=== PATIENT | male | born 1940 | race Caucasian/White ===

== ENCOUNTER 2020-12-22 23:09 | Inpatient (IN) ==
[2020-12-23 05:00] LABS: Hemoglobin 8.1 g/dL (12.9-16.9); Red Cell Distribution Width 14.7 % (11.5-14.5)
[2020-12-23 05:02] LABS: Basophils % 0.2 %; Eosinophils # 0.1 K/mcL (0.0-0.6); Eosinophils % 1.5 %; Hematocrit 24.9 % (37.5-50.1); Immature Granulocytes % 7.9 % (0-4); Immature Platelets 5.2 % (1.1-6.1); Lymphocytes # 0.5 K/mcL (0.6-4.6); Lymphocytes % 12.4 %; Mean Corpuscular HGB Conc 32.5 g/dL (31.6-35.5); Mean Corpuscular Hemoglobin 34.8 pg (28.0-33.3); Mean Corpuscular Volume 106.9 fL (83.0-100.0); Mean Platelet Volume 10.4 fL (9.4-12.4); Monocytes # 0.3 K/mcL (0.0-1.3); Monocytes % 6.2 %; Neutrophils # 2.9 K/mcL (1.6-8.9); Red Blood Count 2.33 M/mcL (4.19-5.50); Segmented Neutrophils % 71.8 %
[2020-12-23 05:04] LABS: Platelet Count 73 K/mcL (140-400)
[2020-12-23 05:10] LABS: INR 1.5; Prothrombin Time 16.6 Seconds (9.4-12.1)
[2020-12-23 05:13] LABS: Activated Partial Thrombo Time 32.6 Seconds (26.0-36.0)
[2020-12-23 05:28] LABS: Alanine Aminotransferase 20 Units/L (7-52); Albumin 3.3 g/dL (3.5-5.7); Albumin/Globulin Ratio 1.3 (1.1-2.2); Alkaline Phosphatase 108 Units/L (34-104); Aspartate Amino Transferase 37 Units/L (13-39); BUN/Creatinine Ratio 18 (6-26); Bilirubin,Direct 0.3 mg/dL (0.0-0.2); Bilirubin,Indirect 1.1 mg/dL (0.0-1.0); Bilirubin,Total 1.4 mg/dL (0.3-1.0); Blood Urea Nitrogen 21 mg/dL (8-23); Calcium 9.2 mg/dL (8.6-10.3); Carbon Dioxide 24 mEq/L (23-29); Chloride 106 mEq/L (98-107); Creatine Kinase 30 Units/L (30-223); Ethanol < 10 mg/dL (Less than 10); Globulin 2.5 g/dL (2.4-3.5); Glucose 33 mg/dL (70-105); Osmolality,Calculated 287 (280-300); Platelet Estimate Decreased (Normal); Poikilocytosis 1+ (Not Present); Potassium 3.7 mEq/L (3.5-5.1); Schistocytes 1+ (Not Present); Sodium 139 mEq/L (136-145); Total Protein 5.8 g/dL (6.4-8.9); Troponin I < 0.03 ng/mL (< 0.04); Uric Acid 6.7 mg/dL (2.3-7.6); eGFR For African Americans > 60 (> 60); eGFR For Non-African Americans > 60 (> 60)
[2020-12-23 05:29] LABS: Bilirubin,Urine Negative (Negative); Blood,Urine Negative (Negative); Clarity,Urine Clear (Clear); Color,Urine Light-Yellow (Yellow); Glucose,Urine (UA) Normal (Normal); Ketones,Urine Negative (Negative); Leukocyte Esterase,Urine Negative (Negative); Nitrite,Urine Negative (Negative); Protein,Urine Negative (Neg-Trace); Specific Gravity,Urine 1.011 (1.010-1.025); Urobilinogen,Urine Normal (Normal)
[2020-12-23] MEDS ORDERED: *HR* Dextrose 50 % in Water (Syg) 50 ML SYRINGE ONE (05:29)
[2020-12-23] MEDS ORDERED: *HR* Dextrose 50 % in Water (Syg) 50 ML SYRINGE IVP ONE (05:35)
[2020-12-23 05:39] LABS: Amphetamine Screen,Urine Negative ng/mL (Cutoff=1000); Barbiturate Screen,Urine Negative ng/mL (Cutoff=200); Benzodiazepines Screen,Urine Negative ng/mL (Cutoff=200); Cannabinoid Screen,Urine Negative ng/mL (Cutoff = 50); Cocaine Screen,Urine Negative ng/mL (Cutoff= 300); Opiate Screen,Urine Negative ng/mL (Cutoff=300); Phencyclidine Screen,Urine Negative ng/mL (Cutoff=25)
[2020-12-23] MEDS ORDERED: 0.9 % Sodium Chloride 1,000 ML IVC ONE (08:38)
[2020-12-23] MEDS ORDERED: Piperacillin/Tazobactam 3.375 GM in 0.9 % Sodium Chloride Mini Bag 100 ML IVPB ONE (08:38)
[2020-12-23] MEDS ORDERED: Vancomycin 1,750 MG/517.5 ML IV.SOLN IVPB ONE (08:38)
[2020-12-23] MEDS ORDERED: Azithromycin 500 MG in 0.9 % Sodium Chloride 250 ML IVPB ONE (08:39)
[2020-12-23 09:07] LABS: Adenovirus Not Detected (Not Detect); Bordetella Pertussis Not Detected (Not Detect); Chlamydophila pneumoniae Not Detected (Not Detect); Coronavirus 229E Not Detected (Not Detect); Coronavirus HKU1 Not Detected (Not Detect); Coronavirus NL63 Not Detected (Not Detect); Coronavirus OC43 Not Detected (Not Detect); Human Metapneumovirus Not Detected (Not Detect); Human Rhinovirus/Enterovirus Not Detected (Not Detect); Influenza A Subtype 2009 H1 Not Detected (Not Detect); Influenza B Not Detected (Not Detect); Mycoplasma pneumoniae Not Detected (Not Detect); Parainfluenza Virus 1 Not Detected (Not Detect); Parainfluenza Virus 2 Not Detected (Not Detect); Parainfluenza Virus 3 Not Detected (Not Detect); Parainfluenza Virus 4 Not Detected (Not Detect); Respiratory Syncytial Virus Not Detected (Not Detect); SARS-CoV-2 Not Detected (Not Detect)
[2020-12-23] MEDS ORDERED: Naloxone 0.4 MG/ML INJ IVP PRN (10:36)
[2020-12-23] MEDS ORDERED: *HR* Dextrose 50 % in Water (Vial) 50 ML VIAL ONE (11:26)
[2020-12-23] MEDS ORDERED: Dextrose Gel 15 GM/37.5 ML TUBE PO PRN ×2 (11:41)
[2020-12-23] MEDS ORDERED: D5% in Water 1,000 ML IVC PRN (11:41)
[2020-12-23] MEDS ORDERED: *HR* Dextrose 50 % in Water (Vial) 50 ML VIAL IVP PRN (11:41)
[2020-12-23] MEDS ORDERED: D5% in 0.45% NACL 1,000 ML IVC SCH (11:45)
[2020-12-23] MEDS ORDERED: Acetaminophen 325 MG TABLET PO PRN (17:21)
[2020-12-24] MEDS: cefTRIAXone 1,000 MG in Water for inj. (sterile) 10 ML IVP SCH (07:53)
[2020-12-24] MEDS: Azithromycin 250 MG TABLET PO SCH (07:54)
[2020-12-24 08:09] LABS: Hematocrit 22.7 % (37.5-50.1); Hemoglobin 7.4 g/dL (12.9-16.9); Mean Corpuscular HGB Conc 32.6 g/dL (31.6-35.5); Mean Corpuscular Hemoglobin 35.1 pg (28.0-33.3); Mean Corpuscular Volume 107.6 fL (83.0-100.0); Mean Platelet Volume 10.6 fL (9.4-12.4); Nucleated Red Blood Cells 4.1 /100 WBC (0); Red Blood Count 2.11 M/mcL (4.19-5.50); Red Cell Distribution Width 14.6 % (11.5-14.5); White Blood Count 3.4 K/mcL (4.3-11.1)
[2020-12-24 08:10] LABS: Platelet Count 70 K/mcL (140-400)
[2020-12-24 08:25] LABS: BUN/Creatinine Ratio 16 (6-26); Blood Urea Nitrogen 18 mg/dL (8-23); Calcium 8.4 mg/dL (8.6-10.3); Carbon Dioxide 21 mEq/L (23-29); Chloride 107 mEq/L (98-107); Glucose 55 mg/dL (70-105); Osmolality,Calculated 281 (280-300); Potassium 3.9 mEq/L (3.5-5.1); Sodium 136 mEq/L (136-145); eGFR For African Americans > 60 (> 60); eGFR For Non-African Americans > 60 (> 60)
[2020-12-24] MEDS ORDERED: Nitroglycerin 0.4 MG TAB.SUBL SL PRN (08:30)
[2020-12-24] MEDS ORDERED: *HR* Dextrose 50 % in Water (Syg) 50 ML SYRINGE IVP ONE (08:33)
[2020-12-24] MEDS ORDERED: Metoprolol XL (24 HR) Succ 50 MG TAB.ER.24H PO SCH (09:00)
[2020-12-24] MEDS: Aspirin Enteric Coated 81 MG Tablet PO SCH (09:26)
[2020-12-24] MEDS: Apixaban 5 MG TABLET PO SCH ×2 (09:26→20:11)
[2020-12-24] MEDS: Acyclovir 200 MG CAPSULE PO SCH ×2 (09:26→20:11)
[2020-12-24 09:56] LABS: Lymphocytes # 0.5 K/mcL (0.6-4.6); Neutrophils # 2.9 K/mcL (1.6-8.9); Platelet Estimate Decreased (Normal)
[2020-12-24 12:25] LABS: Estimated Average Glucose 91 mg/dl; Hemoglobin A1C 4.8 %
[2020-12-24 12:54] LABS: % Iron Saturation 24 % (20-55); Ferritin > 1500 ng/mL (20-250); Iron 61 mcg/dL (65-175); Transferrin 180 mg/dL (203-362)
[2020-12-24 13:06] LABS: Folate 6.9 ng/mL (3.0-16.0)
[2020-12-24 20:17] LABS: Hematocrit 21.9 % (37.5-50.1)
[2020-12-24] MEDS ORDERED: NON-FORMULARY MEDICATION 1 EACH EACH (Atorvastatin Calcium [Lipitor] 80 MG Tablet) PO SCH (21:00)
[2020-12-25 02:40] LABS: Basophils % 0.3 %; Hematocrit 21.9 % (37.5-50.1); Hemoglobin 6.9 g/dL (12.9-16.9); Hemoglobin 7.2 g/dL (12.9-16.9)
[2020-12-25 02:42] LABS: Eosinophils # 0.1 K/mcL (0.0-0.6); Eosinophils % 1.8 %; Hematocrit 22.9 % (37.5-50.1); Immature Granulocytes % 6.7 % (0-4); Immature Platelets 3.4 % (1.1-6.1); Lymphocytes # 0.5 K/mcL (0.6-4.6); Lymphocytes % 15.6 %; Mean Corpuscular HGB Conc 31.4 g/dL (31.6-35.5); Mean Corpuscular Hemoglobin 35.1 pg (28.0-33.3); Mean Corpuscular Volume 111.7 fL (83.0-100.0); Mean Platelet Volume 10.9 fL (9.4-12.4); Monocytes # 0.5 K/mcL (0.0-1.3); Monocytes % 15.6 %; Nucleated Red Blood Cells 4.6 /100 WBC (0); Red Blood Count 2.05 M/mcL (4.19-5.50); Red Cell Distribution Width 15.1 % (11.5-14.5); White Blood Count 3.3 K/mcL (4.3-11.1)
[2020-12-25 02:48] LABS: Platelet Count 68 K/mcL (140-400)
[2020-12-25 02:59] LABS: BUN/Creatinine Ratio 18 (6-26); Blood Urea Nitrogen 23 mg/dL (8-23); Calcium 8.1 mg/dL (8.6-10.3); Carbon Dioxide 18 mEq/L (23-29); Chloride 107 mEq/L (98-107); Glucose 87 mg/dL (70-105); Osmolality,Calculated 281 (280-300); Phosphorous 2.8 mg/dL (2.7-4.5); Potassium 4.1 mEq/L (3.5-5.1); Sodium 134 mEq/L (136-145); eGFR For African Americans > 60 (> 60); eGFR For Non-African Americans 53 (> 60)
[2020-12-25 03:11] LABS: Platelet Estimate Decreased (Normal); Polychromasia 1+ (Not Present)
[2020-12-25] MEDS ORDERED: Losartan/HCTZ 50-12.5 TABLET PO SCH (09:00)
[2020-12-25] MEDS: Apixaban 5 MG TABLET PO SCH ×2 (09:26→20:36)
[2020-12-25] MEDS: Azithromycin 250 MG TABLET PO SCH (09:26)
[2020-12-25] MEDS: Acyclovir 200 MG CAPSULE PO SCH ×2 (09:27→20:37)
[2020-12-25] MEDS: Aspirin Enteric Coated 81 MG Tablet PO SCH (09:28)
[2020-12-25] MEDS: cefTRIAXone 1,000 MG in Water for inj. (sterile) 10 ML IVP SCH (09:28)
[2020-12-25] MEDS: amLODIPine 5 MG TABLET PO SCH (11:06)
[2020-12-25] MEDS ORDERED: 0.9 % Sodium Chloride 250 ML IVC SCH (17:00)
[2020-12-26 03:41] LABS: Hemoglobin 6.6 g/dL (12.9-16.9)
[2020-12-26 03:43] LABS: Basophils % 0.7 %; Eosinophils # 0.1 K/mcL (0.0-0.6); Eosinophils % 2.8 %; Hematocrit 20.7 % (37.5-50.1); Lymphocytes # 0.4 K/mcL (0.6-4.6); Lymphocytes % 14.8 %; Mean Corpuscular HGB Conc 31.9 g/dL (31.6-35.5); Mean Corpuscular Hemoglobin 34.6 pg (28.0-33.3); Mean Corpuscular Volume 108.4 fL (83.0-100.0); Mean Platelet Volume 10.6 fL (9.4-12.4); Monocytes # 0.2 K/mcL (0.0-1.3); Monocytes % 6.2 %; Neutrophils # 1.9 K/mcL (1.6-8.9); Nucleated Red Blood Cells 5.5 /100 WBC (0); Red Blood Count 1.91 M/mcL (4.19-5.50); Red Cell Distribution Width 15.1 % (11.5-14.5); Segmented Neutrophils % 65.5 %; White Blood Count 2.9 K/mcL (4.3-11.1)
[2020-12-26 03:46] LABS: Platelet Count 83 K/mcL (140-400)
[2020-12-26 04:02] LABS: BUN/Creatinine Ratio 20 (6-26); Blood Urea Nitrogen 21 mg/dL (8-23); Calcium 8.1 mg/dL (8.6-10.3); Carbon Dioxide 18 mEq/L (23-29); Chloride 108 mEq/L (98-107); Glucose 91 mg/dL (70-105); Osmolality,Calculated 283 (280-300); Potassium 4.1 mEq/L (3.5-5.1); Sodium 135 mEq/L (136-145); eGFR For African Americans > 60 (> 60); eGFR For Non-African Americans > 60 (> 60)
[2020-12-26 04:04] LABS: Large Platelets Present (Not Present); Platelet Estimate Decreased (Normal)
[2020-12-26] MEDS: Apixaban 5 MG TABLET PO SCH ×2 (09:03→19:28)
[2020-12-26] MEDS: Aspirin Enteric Coated 81 MG Tablet PO SCH (09:03)
[2020-12-26] MEDS: Azithromycin 250 MG TABLET PO SCH (09:04)
[2020-12-26] MEDS: cefTRIAXone 1,000 MG in Water for inj. (sterile) 10 ML IVP SCH (09:04)
[2020-12-26] MEDS: amLODIPine 5 MG TABLET PO SCH (09:04)
[2020-12-26] MEDS: Acyclovir 200 MG CAPSULE PO SCH ×2 (09:05→19:27)
[2020-12-26 12:06] LABS: Hematocrit 21.3 % (37.5-50.1); Hemoglobin 6.9 g/dL (12.9-16.9)
[2020-12-26 17:42] LABS: Hematocrit 20.8 % (37.5-50.1); Hemoglobin 6.9 g/dL (12.9-16.9)
[2020-12-27 01:16] LABS: Hemoglobin 6.5 g/dL (12.9-16.9)
[2020-12-27 01:17] LABS: Hematocrit 19.9 % (37.5-50.1); Mean Corpuscular HGB Conc 32.7 g/dL (31.6-35.5); Mean Corpuscular Hemoglobin 35.1 pg (28.0-33.3); Mean Corpuscular Volume 107.6 fL (83.0-100.0); Monocytes # 0.3 K/mcL (0.0-1.3); Nucleated Red Blood Cells 5.4 /100 WBC (0); Platelet Count 102 K/mcL (140-400); Red Blood Count 1.85 M/mcL (4.19-5.50); Red Cell Distribution Width 15.2 % (11.5-14.5); White Blood Count 3.9 K/mcL (4.3-11.1)
[2020-12-27 01:30] LABS: BUN/Creatinine Ratio 19 (6-26); Blood Urea Nitrogen 20 mg/dL (8-23); Calcium 8.2 mg/dL (8.6-10.3); Carbon Dioxide 19 mEq/L (23-29); Chloride 108 mEq/L (98-107); Glucose 99 mg/dL (70-105); Osmolality,Calculated 283 (280-300); Potassium 4.2 mEq/L (3.5-5.1); Sodium 135 mEq/L (136-145); eGFR For African Americans > 60 (> 60); eGFR For Non-African Americans > 60 (> 60)
[2020-12-27 03:36] LABS: Anisocytosis 1+ (Not Present); Eosinophils # 0.2 K/mcL (0.0-0.6); Lymphocytes # 0.3 K/mcL (0.6-4.6); Neutrophils # 2.9 K/mcL (1.6-8.9); Platelet Estimate Slight Decrease (Normal)
[2020-12-27 03:37] LABS: Toxic Granulation Present (Not Present)
[2020-12-27] MEDS: amLODIPine 5 MG TABLET PO SCH (08:44)
[2020-12-27] MEDS: Azithromycin 250 MG TABLET PO SCH (08:44)
[2020-12-27] MEDS: Aspirin Enteric Coated 81 MG Tablet PO SCH (08:44)
[2020-12-27] MEDS: cefTRIAXone 1,000 MG in Water for inj. (sterile) 10 ML IVP SCH (08:45)
[2020-12-27] MEDS: Acyclovir 200 MG CAPSULE PO SCH ×2 (08:45→19:51)
[2020-12-27 15:54] LABS: Hematocrit 20.3 % (37.5-50.1); Hemoglobin 6.8 g/dL (12.9-16.9)
[2020-12-27 17:41] LABS: Hematocrit 19.7 % (37.5-50.1); Hemoglobin 6.7 g/dL (12.9-16.9)
[2020-12-27 19:42] LABS: Hematocrit 20.3 % (37.5-50.1)
[2020-12-28 06:46] LABS: Eosinophils # 0.1 K/mcL (0.0-0.6); Hemoglobin 7.5 g/dL (12.9-16.9); Immature Platelets 2.8 % (1.1-6.1); Mean Corpuscular HGB Conc 32.6 g/dL (31.6-35.5); Mean Corpuscular Hemoglobin 33.8 pg (28.0-33.3); Mean Corpuscular Volume 103.6 fL (83.0-100.0); Mean Platelet Volume 9.7 fL (9.4-12.4); Nucleated Red Blood Cells 4.7 /100 WBC (0); Platelet Count 98 K/mcL (140-400); Red Blood Count 2.22 M/mcL (4.19-5.50); Red Cell Distribution Width 16.9 % (11.5-14.5); White Blood Count 3.9 K/mcL (4.3-11.1)
[2020-12-28 07:02] LABS: BUN/Creatinine Ratio 21 (6-26); Blood Urea Nitrogen 20 mg/dL (8-23); Calcium 8.3 mg/dL (8.6-10.3); Carbon Dioxide 21 mEq/L (23-29); Chloride 104 mEq/L (98-107); Glucose 117 mg/dL (70-105); Osmolality,Calculated 282 (280-300); Sodium 134 mEq/L (136-145); eGFR For African Americans > 60 (> 60); eGFR For Non-African Americans > 60 (> 60)
[2020-12-28 07:43] LABS: Lymphocytes # 0.8 K/mcL (0.6-4.6); Monocytes # 0.1 K/mcL (0.0-1.3); Neutrophils # 2.8 K/mcL (1.6-8.9); Platelet Estimate Decreased (Normal)
[2020-12-28 07:44] LABS: Polychromasia 1+ (Not Present)
[2020-12-28] MEDS: Aspirin Enteric Coated 81 MG Tablet PO SCH (08:22)
[2020-12-28] MEDS: cefTRIAXone 1,000 MG in Water for inj. (sterile) 10 ML IVP SCH (08:22)
[2020-12-28] MEDS: Acyclovir 200 MG CAPSULE PO SCH ×2 (08:22→20:58)
[2020-12-28] MEDS: Azithromycin 250 MG TABLET PO SCH (08:23)
[2020-12-28] MEDS: amLODIPine 5 MG TABLET PO SCH (08:23)
[2020-12-28] MEDS ORDERED: 0.9 % Sodium Chloride 250 ML ONE (13:49)
[2020-12-29 06:25] LABS: Hematocrit 24.7 % (37.5-50.1); Hemoglobin 8.1 g/dL (12.9-16.9); Mean Corpuscular HGB Conc 32.8 g/dL (31.6-35.5); Mean Corpuscular Hemoglobin 32.7 pg (28.0-33.3); Mean Corpuscular Volume 99.6 fL (83.0-100.0); Mean Platelet Volume 10.1 fL (9.4-12.4); Nucleated Red Blood Cells 6.1 /100 WBC (0); Platelet Count 102 K/mcL (140-400); Red Blood Count 2.48 M/mcL (4.19-5.50); Red Cell Distribution Width 18.5 % (11.5-14.5); White Blood Count 3.3 K/mcL (4.3-11.1)
[2020-12-29 07:11] LABS: Lymphocytes # 0.7 K/mcL (0.6-4.6); Monocytes # 0.1 K/mcL (0.0-1.3); Neutrophils # 2.4 K/mcL (1.6-8.9); Platelet Estimate Decreased (Normal); Polychromasia 1+ (Not Present)
[2020-12-29] MEDS: Magnesium Oxide 400 MG TABLET PO SCH (08:07)
[2020-12-29] MEDS: Cefdinir 300 MG CAPSULE PO SCH ×2 (08:07→19:59)
[2020-12-29] MEDS: Cyanocobalamin (B-12) 1,000 MCG TABLET PO SCH (08:08)
[2020-12-29] MEDS: amLODIPine 5 MG TABLET PO SCH (08:08)
[2020-12-29] MEDS: Aspirin Enteric Coated 81 MG Tablet PO SCH (08:08)
[2020-12-29] MEDS: Acyclovir 200 MG CAPSULE PO SCH ×2 (08:08→19:58)
[2020-12-30] MEDS: Acyclovir 200 MG CAPSULE PO SCH (08:46)
[2020-12-30] MEDS: Aspirin Enteric Coated 81 MG Tablet PO SCH (08:46)
[2020-12-30] MEDS: Cefdinir 300 MG CAPSULE PO SCH (08:47)
[2020-12-30] MEDS: Magnesium Oxide 400 MG TABLET PO SCH (08:47)
[2020-12-30] MEDS: amLODIPine 5 MG TABLET PO SCH (08:47)
[2020-12-30] MEDS: Cyanocobalamin (B-12) 1,000 MCG TABLET PO SCH (08:47)
[2020-12-30 11:06] VITALS: BP 111/52; PULSE 76; TEMP 98.9; O2SAT 95
[2020-12-31] MEDS ORDERED: Cholecalciferol (D-3) 1,000 UNIT (25MCG) TABLET PO SCH (09:00)
[2021-01-01 05:23] LABS: Lambda Qnt Free Light Chains 290.18 mg/L (5.71-26.30)
[2021-01-01 06:54] LABS: Kappa Qnt Free Light Chains 1.04 mg/L (3.30-19.40)
[2021-01-03 09:25] LABS: Alpha 2 Globulin (PEP) 0.59 g/dL (0.48-1.05); Beta Globulin (PEP) 0.56 g/dL (0.48-1.10)
[2021-01-03 10:21] LABS: IFE Reflexed IFE Done; Immunoglobulin A 4 mg/dL (68-408); Immunoglobulin G 911 mg/dL (768-1632); Immunoglobulin M < 10 mg/dL (35-263)
== END 2020-12-30 19:24 | disposition other institution (70) | DRG 871 ==
LOC: SUPCPDRO → 3BNU 23:09 → EMEROOARM 23:09 → SUATTDRO 12-23 10:32 → 3BNU 12-23 11:04 → SUATTDRO 12-26 17:45
PROVIDERS: ADMIT Internal Medicine; ATTEND Registered Nurse